=== PATIENT | female | born 1940 | race Caucasian/White ===

== ENCOUNTER → 2020-09-12 | Outpatient (CLI) | payer MEDICARE ==
[~2020-09-12] MED LIST: NEURONTIN100 MG PO; PRAVACHOL20 MG PO; PREVACID30 MG PO
== END ==
LOC: CT 07:47
PROVIDERS: ATTEND Family Medicine
DX: A31.0 Pulmonary mycobacterial infection (principal); R10.84 Generalized abdominal pain
CPT/HCPCS: 71250; 74176